=== PATIENT | female | born 1985 | race Caucasian/White ===

== ENCOUNTER → 2017-07-09 | Outpatient (CLI) | payer OTHER ==
[~2017-07-09] MED LIST: GADAVIST IV PRN
--- NOTE | 2017-07-10 13:28 | DIAGNOSTIC IMAGING REPORT ---
MRI OF THE PELVIS WITH AND WITHOUT CONTRAST CLINICAL HISTORY: Uterine mass. COMPARISON STUDY: None available at time of interpretation. TECHNIQUE: Utilizing a 1.5 Lin magnet and dedicated coil, multiplanar, multi echo imaging of the pelvis was performed pre and postcontrast administration. Injection of 5 cc of Gadavist IV was uneventful. FINDINGS: An intrauterine device is in place. This is appropriately positioned. Uterine morphology appears normal. The ovaries are normal. A trace amount of fluid within the pelvis is physiologic. Note is made of a 3.9 x 3.3 x 3.8 cm T2 hypointense mass adjacent to the right aspect of the uterine fundus. This enhances with exception of a small few small cystic foci. This likely has a stalk and arises from the uterus. This suggests a pedunculated fibroid. There is no pelvic lymphadenopathy. Bladder is unremarkable. Visualized skeletal structures are unremarkable with no suspicious marrow replacement. IMPRESSION: 1. 3.9 x 3.3 x 3.8 cm mass adjacent to the right aspect of the uterine fundus. The appearance is suggestive of a pedunculated fibroid. 2. Normal appearance of the ovaries. 3. Intrauterine device in place. 4. Trace fluid within the pelvis which is likely physiologic. Electronically signed by: Donell Gutierrez M.D. 07/10/2017 1:27 PM Dictated Date/Time: 07/09/2017 7:54 PM
== END | disposition home or self-care (01) ==
LOC: C.MRI 17:54
PROVIDERS: ATTEND Physician Assistant Medical
DX: N85.9 Noninflammatory disorder of uterus, unspecified (principal)